=== PATIENT | male | born 1985 | race Two or more races ===

== ENCOUNTER 2018-04-27 12:38 | Outpatient (CLI) | payer BC ==
[2018-04-27 13:32] LABS: BASOPHILS % (AUTO) 0.6 % (0.0-2.0); EOSINOPHILS % (AUTO) 3.1 % (0.0-6.0); HEMATOCRIT 47 % (39-51); HEMOGLOBIN 15.8 g/dL (13.5-17.5); LYMPHOCYTES # (AUTO) 2.1 /CMM (0.8-4.8); LYMPHOCYTES % (AUTO) 37.2 % (20.0-44.0); MEAN CORPUSCULAR HEMOGLOBIN 30 PG (26.0-33.0); MEAN CORPUSCULAR HGB CONC 33 g/dl (31.0-36.0); MEAN CORPUSCULAR VOLUME 92 fL (80-96); MONOCYTES # (AUTO) 0.6 /CMM (0.1-1.30); MONOCYTES % (AUTO) 10.6 % (2.0-12.0); NEUTROPHILS # (AUTO) 2.7 /CMM (1.8-8.9); NEUTROPHILS % (AUTO) 48.5 % (43.0-81.0); PLATELET COUNT (AUTO) 254 /CMM (150-450); RED BLOOD CELL COUNT(AUTO) 5.17 MIL/uL (4.5-6.0); WHITE BLOOD COUNT (AUTO) 5.7 K/uL (4.3-11.0)
[2018-04-27 13:45] LABS: BILIRUBIN,TOTAL 1.4 mg/dL (0.2-1.0); CALCIUM, SERUM 8.5 mg/dL (8.5-10.1); CREATININE 1.1 mg/dL (0.6-1.3); POTASSIUM 3.9 mmol/L (3.5-5.1); TOTAL PROTEIN, SERUM 7.3 g/dL (6.4-8.2)
[2018-04-27 13:55] LABS: FREE T4 (FREE THYROXINE) 1.07 ng/dL (0.76-1.46); THYROID STIMULATING HORMONE 0.983 uIU/mL (0.358-3.74)
== END 2018-04-27 23:59 | disposition home or self-care (01) ==
LOC: LAB 12:38
PROVIDERS: ATTEND Family Medicine
DX: R13.12 Dysphagia, oropharyngeal phase (principal)
CPT/HCPCS: 71046; 80053-TC; 80061-TC; 84439-TC; 84443-TC; 85025-TC; 86677

== ENCOUNTER 2018-05-04 10:57 | Outpatient (CLI) | payer BC | END 2018-05-04 23:59 | disposition home or self-care (01) | LOC: US 10:57 | PROVIDERS: ATTEND Family Medicine | DX: R13.12 Dysphagia, oropharyngeal phase (principal); E04.1 Nontoxic single thyroid nodule | CPT/HCPCS: 76536-TC ==

== ENCOUNTER 2018-10-10 11:27 | Emergency (ER) | payer BC ==
[~2018-10-10] VITALS: Ht 177.8 cm; Wt 93.4 kg
[2018-10-10 11:35] VITALS: BP 145/70
== END 2018-10-10 12:20 | disposition home or self-care (01) ==
LOC: ER 11:28
DX: H10.9 Unspecified conjunctivitis (principal)

== ENCOUNTER 2021-06-01 09:28 | Outpatient (CLI) | payer BC | END 2021-06-01 23:59 | disposition home or self-care (01) | LOC: CT 09:28 | PROVIDERS: ATTEND Family Medicine | DX: J32.0 Chronic maxillary sinusitis (principal); J34.1 Cyst and mucocele of nose and nasal sinus; M54.2 Cervicalgia | CPT/HCPCS: 70450-TC; 72125-TC ==